=== PATIENT | female | born 1985 | race Caucasian/White ===

== ENCOUNTER 2017-03-28 17:19 | Emergency (ER) | payer SELFPAY ==
[~2017-03-28] VITALS: Ht 160 cm; Wt 90.0 kg
[~2017-03-28 17:19] MED LIST: MMW SSP; PENI500T PO
[2017-03-28 17:21] VITALS: BP 141/93; PULSE 98; RESP 16; TEMP 98.2; O2SAT 98
--- NOTE | 2017-03-28 18:02 | PD ---
HPI . rash that pops up here and there Chief Complaint: Skin Problem Time Seen by Provider: 18:02 Travel History International Travel<30 days: No Contact w/Intl Traveler<30days: No Traveled to known affect area: No History of Present Illness HPI 31 yr old female here with c/o a rash that comes and goes for the past 24 hours. She says that occasionally it denise. She denies any blisters or lesion. Most of the rash is clearing up. She came to the ED because her boss needs a note stating that she is not contagious. She denies any fever or chills. No angioedema or shortness of breath. PFSH Past Medical History Asthma: Yes Anxiety: Yes Depression: Yes Cancer: Yes (hx CERVICAL) Diminished Hearing: No Genitourinary: Yes (hx UTI) Musculoskeletal: Yes (CHRONIC BACK PAIN) Immunizations Current: Yes ?: Unknown : 8 Para: 1 Miscarriage: 3 : 4 Ovarian Cysts: Yes Past Surgical History Section: Yes (X1) Gynecologic Surgery: Yes (CERVIX REMOVED R/T CANCER) Hysterectomy: Yes Tonsillectomy: Yes Social History Alcohol Use: No Tobacco Use: Yes (1 ppd) Substance Use: Yes (hx IV DRUG USE/DILAUDID) Allergies-Medications (Allergen,Severity, Reaction): Coded Allergies: Aspirin (Verified Allergy, Severe, "seizures and hives", 06/20/15) Darvocet-N 100 (Verified Allergy, Severe, "hives", 06/20/15) Keflex (Verified Allergy, Severe, Hives, 06/20/15) Tramadol (Verified Allergy, Mild, THROAT SWELLS, 06/20/15) Reported Meds & Prescriptions Reported Meds & Active Scripts Active Magic Mouthwash-Diphenhy Formula (Lidocaine/Diphenhydr/Alum/Mg/Simeth) Ml 5-10 Ml SSP 5 TIMES A DAY MAGIC MOUTHWASH CONTAINS 1/3 VISCOUS LIDOCAINE, 1/3 MAALOX, AND 1/3 BENADRYL. Pen Vk (Penicillin V Potassium) 500 Mg Tab 500 Mg PO QID Review of Systems General / Constitutional: No: Fever Eyes: No: Visual changes HENT: No: Headaches Cardiovascular: No: Chest Pain or Discomfort Respiratory: No: Shortness of Breath Gastrointestinal: No: Abdominal Pain Genitourinary: No: Dysuria Musculoskeletal: No: Pain Skin: Positive Rash Neurologic: No: Weakness Psychiatric: No: Depression Endocrine: No: Polydipsia Hematologic/Lymphatic: No: Easy Bruising Physical Exam Narrative GENERAL: AAO x 3, no acute distress, Well-nourished, well-developed patient. SKIN: Warm and dry. No visible rashes or bruising. Small macular erythematous patch on the right flank. No other rash visualized. No blisters or lesions HEAD: Normocephalic and atraumatic. EYES: No scleral icterus. No injection or drainage. ENT: No nasal drainage noted. Mucous membranes pink. Airway patent. No abdominal oropharynx NECK: Supple, trachea midline. No JVD. CARDIOVASCULAR: Regular rate and rhythm without murmurs, gallops, or rubs. RESPIRATORY: Breath sounds equal bilaterally. No accessory muscle use. No rhonchi or rales. GASTROINTESTINAL: Abdomen soft, non-tender, nondistended. EXTREMITIES: No cyanosis or edema. BACK: Nontender without obvious deformity. No CVA tenderness. PSYCH: AAO x 3, normal affect. Data Data Last Documented VS Vital Signs Date Time Temp Pulse Resp B/P Pulse Ox O2 Delivery O2 Flow Rate FiO2 03/28/17 17:21 98.2 98 16 141/93 98 MDM Medical Decision Making Medical Screen Exam Complete: Yes Emergency Medical Condition: Yes Medical Record Reviewed: Yes Differential Diagnosis Contact dermatitis, less likely scabies, less likely shingles Narrative Course 31 yr old female here with c/o a rash that comes and goes for the past 24 hours. She says that occasionally it denise. She denies any blisters or lesion. Most of the rash is clearing up. She came to the ED because her boss needs a note stating that she is not contagious. She denies any fever or chills. No angioedema or shortness of breath. Patient seen and examined. She appears to have a contact dermatitis. I've explained to her that unfortunately I can tell exact cause. I recommend follow-up with a surveyor mine if the symptoms continue. I do not believe this is contagious. She can return to work. I'll go ahead and provide her with some prednisone to help with any inflammation. Patient verbalized understanding of instructions, questions were answered, and thanked me for their care. I advised them if their condition worsens, please return to the nearest emergency room for further care. Diagnosis Primary Impression: Contact dermatitis Qualified Code: L25.9 - Contact dermatitis, unspecified contact dermatitis type, unspecified trigger Patient Instructions: General Instructions Departure Forms: Tests/Procedures, Work Release Enter return to work date: March 29, 2017 Additional Instructions: Please return to emergency department if your symptoms return or worsen. Follow up with your primary care provider. Take medications as prescribed. Med/Other Pt SpecificInfo: Prescription(s) given Scripts Methylprednisolone Dosepak (Medrol Dosepak)4 Mg Dspk4 Mg PO DIRECTED #1 DSPK Ref 0 Per Pharmacist direction Prov:GarciaTamikoGenevieveharley Man DO 03/28/17 Disposition: 01 DISCHARGE HOME Condition: Stable Carmen Love March 28, 2017 18:02
[2017-03-28] MEDS ORDERED: MEDR4PAK PO (18:06)
== END 2017-03-28 18:30 | disposition home or self-care (01) ==
LOC: NEPK 17:19
DX: L25.9 Unspecified contact dermatitis, unspecified cause (principal); J45.909 Unspecified asthma, uncomplicated; F17.210 Nicotine dependence, cigarettes, uncomplicated
CPT/HCPCS: 99282

== ENCOUNTER 2017-04-11 10:19 | Emergency (ER) | payer SELFPAY ==
[~2017-04-11] VITALS: Ht 160 cm; Wt 100.0 kg
[~2017-04-11 10:19] MED LIST changes: +MEDR4PAK PO; -MMW SSP; -PENI500T PO
[2017-04-11 10:20] VITALS: BP 140/86; PULSE 104; RESP 16; TEMP 98.6; O2SAT 99
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
== END 2017-04-11 11:08 | disposition home or self-care (01) ==
LOC: NEPD 10:19
DX: S09.90XA Unspecified injury of head, initial encounter (principal); F17.210 Nicotine dependence, cigarettes, uncomplicated; W22.8XXA Striking against or struck by other objects, initial encounter; Y93.89 Activity, other specified; Y92.9 Unspecified place or not applicable; Y99.9 Unspecified external cause status
CPT/HCPCS: 99282

== ENCOUNTER 2017-12-04 01:55 | Emergency (ER) | payer SELFPAY ==
[~2017-12-04] VITALS: Ht 160 cm; Wt 75.7 kg
[2017-12-04 01:57] VITALS: BP 149/106; PULSE 113; RESP 16; TEMP 98.6; O2SAT 98
[2017-12-04] MEDS ORDERED: VANCOMYCIN INJ 1,000 MG in SODIUM CHLOR 0.9% 250 ML INJ 250 ML IV ONE (03:00)
--- NOTE | 2017-12-04 03:40 | RADRPT ---
EXAM DATE/TIME: 12/04/2017 03:13 [facility] COMPARISON: No previous studies available for comparison. INDICATIONS : Pain in right 3rd digit of hand. MEDICAL HISTORY : None. SURGICAL HISTORY : None. ENCOUNTER: Initial ACUITY: 1 day PAIN SCORE: 4/10 LOCATION: Right 3rd finger FINDINGS: There is soft tissue swelling of the third digit. No fracturei seen. Bony destruction is not seen. CONCLUSION: Soft tissue swelling.. Hermelindo Araiza MD on December 04, 2017 at 3:36 Board Certified Radiologist. This report was verified electronically.
[2017-12-04 03:43] LABS: AUTOMATED NEUTROPHIL # 7.6 TH/MM3 (1.8-7.7); BASOPHIL % 0.4 % (0.0-2.0); EOSINOPHIL % 0.1 % (0.0-4.0); HEMATOCRIT 44.4 % (35.0-46.0); HEMOGLOBIN 15.1 GM/DL (11.6-15.3); LYMPH % 7.2 % (9.0-44.0); LYMPHOCYTE # 0.6 TH/MM3 (1.0-4.8); MEAN CELL VOLUME 86.9 FL (80.0-100.0); MEAN CORPUSCULAR HEMOGLOBIN 29.6 PG (27.0-34.0); MEAN CORPUSCULAR HGB CONC 34.1 % (32.0-36.0); MEAN PLATELET VOLUME 9.8 FL (7.0-11.0); MONO % 5.2 % (0.0-8.0); MONOCYTE # 0.5 TH/MM3 (0-0.9); NEUT % 87.1 % (16.0-70.0); PLATELET COUNT 373 TH/MM3 (150-450); RED CELL DISTRIBUTION WIDTH 14.1 % (11.6-17.2); WHITE BLOOD COUNT 8.7 TH/MM3 (4.0-11.0)
[2017-12-04 03:58] VITALS: BP 125/85; PULSE 101; RESP 18; O2SAT 100
[2017-12-04 04:04] LABS: BICARBONATE 25.1 MEQ/L (21.0-32.0); CALCIUM 9.8 MG/DL (8.5-10.1); CREATININE 0.87 MG/DL (0.50-1.00)
[2017-12-04] MEDS ORDERED: KETOROLAC TROMETHAMINE 30 MG/ML (IVP) VIAL IV PUSH ONE (04:15)
--- NOTE | 2017-12-04 04:57 | RADRPT ---
EXAM DATE/TIME: 12/04/2017 04:20 [facility] COMPARISON: No previous studies available for comparison. INDICATIONS : Shortness of breath MEDICAL HISTORY : None. SURGICAL HISTORY : Tonsillectomy. Cervix removed ENCOUNTER: Initial ACUITY: 1 day PAIN SCORE: 7/10 LOCATION: Bilateral chest FINDINGS: A single view of the chest demonstrates the lungs to be symmetrically aerated without evidence of mas s, infiltrate or effusion. The cardiomediastinal contours are unremarkable. Osseous structures are intact. CONCLUSION: No acute disease. Hermelindo Araiza MD on December 04, 2017 at 4:55 Board Certified Radiologist. This report was verified electronically.
[2017-12-04 05:30] VITALS: RESP 18
[2017-12-04] MEDS ORDERED: CLIN150C14 PO (05:46)
[2017-12-04] MEDS ORDERED: BACT800T5 PO (05:46)
--- NOTE | 2017-12-04 05:48 | PD ---
HPI Chief Complaint: Skin Problem Time Seen by Provider: 02:57 Travel History International Travel<30 days: No Contact w/Intl Traveler<30days: No Traveled to known affect area: No History of Present Illness HPI 32-year-old female presents to the emergency department with redness and swelling of her right middle finger after sustaining a laceration while at work 1 week ago. Patient's noted symptoms worsening over the past 2 days. No ascending erythema no fever or chills. No nausea or vomiting. Patient states her last tetanus immunization was 2 years ago. Patient denies . Patient rates pain as moderate to severe. PFSH Past Medical History Narrative Medical Anxiety depression IV drug abuse cervical cancer ovarian cyst; nursing notes reviewed Asthma: Yes Anxiety: Yes Depression: Yes Cancer: Yes (hx CERVICAL) Diminished Hearing: No Genitourinary: Yes (hx UTI) Musculoskeletal: Yes (CHRONIC BACK PAIN) Immunizations Current: Yes ?: Unknown : 8 Para: 1 Miscarriage: 3 : 4 Ovarian Cysts: Yes Past Surgical History Section: Yes (X1) Gynecologic Surgery: Yes ( CERVIX REMOVED R/T CANCER) Hysterectomy: Yes Tonsillectomy: Yes Social History Alcohol Use: Yes (OCC) Tobacco Use: Yes (2 ppd) Substance Use: Yes (hx IV DRUG USE/DILAUDID&METH) Allergies-Medications (Allergen,Severity, Reaction): Coded Allergies: acetaminophen (Unverified Allergy, Severe, "hives", 12/04/17) aspirin (Unverified Allergy, Severe, "seizures and hives", 12/04/17) cephalexin (Unverified Allergy, Severe, Hives, 12/04/17) propoxyphene (Unverified Allergy, Severe, "hives", 12/04/17) tramadol (Unverified Allergy, Mild, THROAT SWELLS, 12/04/17) Reported Meds & Prescriptions Reported Meds & Active Scripts Active No Active Prescriptions or Reported Medications Review of Systems Except as stated in HPI: all other systems reviewed are Neg General / Constitutional: No: Fever, Chills HENT: No: Congestion Cardiovascular: No: Chest Pain or Discomfort Respiratory: No: Shortness of Breath Gastrointestinal: No: Abdominal Pain Genitourinary: No: Dysuria, Hematuria Musculoskeletal: Positive: Edema (right middle finger), Pain (right middle finger), No: Arthralgias Skin: No Rash Neurologic: No: Weakness Psychiatric: No: Anxiety Hematologic/Lymphatic: No: Lymph Node Enlargement Physical Exam Narrative GENERAL: Well-developed well-nourished female in no acute distress no respiratory distress SKIN: Warm and dry. HEAD: Normocephalic. EYES: No scleral icterus. No injection or drainage. NECK: Supple, trachea midline. No JVD or lymphadenopathy. CARDIOVASCULAR: Regular rate and rhythm without murmurs, gallops, or rubs. RESPIRATORY: Breath sounds equal bilaterally. No accessory muscle use. GASTROINTESTINAL: Abdomen soft, non-tender, nondistended. MUSCULOSKELETAL: No cyanosis, or edema. Attention right hand right middle finger digit erythema edema mild increased warmth and evidence of poorly healing laceration to the distal medial aspect. Capillary refill is brisk and less than 2 seconds sensation is intact there is no involvement of the hand patient has decreased range of motion secondary to soft tissue swelling. No necrotic tissue, no palpable subcutaneous gas. BACK: Nontender without obvious deformity. No CVA tenderness. Data Data Last Documented VS Vital Signs Date Time Temp Pulse Resp B/P (MAP) Pulse Ox O2 Delivery O2 Flow Rate FiO2 12/04/17 05:30 18 12/04/17 03:58 101 125/85 (98) 100 Room Air 12/04/17 01:57 98.6 Orders Orders Basic Metabolic Panel (Bmp) (12/04/17 02:57) Complete Blood Count With Diff (12/04/17 02:57) Blood Culture (12/04/17 02:57) Wound Culture And Gram Stain (12/04/17 02:57) Iv Access Insert/Monitor (12/04/17 02:57) Hand, Complete ([id number]) (12/04/17 ) Vancomycin Inj (Vancomycin Inj) (12/04/17 03:00) Ed Urine Pregnancytest Poc (12/04/17 02:57) Chest, Single Ap (12/04/17 ) Ketorolac Inj (Toradol Inj) (12/04/17 04:15) Labs Laboratory Tests Test 12/04/17 03:30 White Blood Count 8.7 TH/MM3 Red Blood Count 5.10 MIL/MM3 Hemoglobin 15.1 GM/DL Hematocrit 44.4 % Mean Corpuscular Volume 86.9 FL Mean Corpuscular Hemoglobin 29.6 PG Mean Corpuscular Hemoglobin Concent 34.1 % Red Cell Distribution Width 14.1 % Platelet Count 373 TH/MM3 Mean Platelet Volume 9.8 FL Neutrophils (%) (Auto) 87.1 % Lymphocytes (%) (Auto) 7.2 % Monocytes (%) (Auto) 5.2 % Eosinophils (%) (Auto) 0.1 % Basophils (%) (Auto) 0.4 % Neutrophils # (Auto) 7.6 TH/MM3 Lymphocytes # (Auto) 0.6 TH/MM3 Monocytes # (Auto) 0.5 TH/MM3 Eosinophils # (Auto) 0.0 TH/MM3 Basophils # (Auto) 0.0 TH/MM3 CBC Comment DIFF FINAL Differential Comment Blood Urea Nitrogen 17 MG/DL Creatinine 0.87 MG/DL Random Glucose 113 MG/DL Calcium Level 9.8 MG/DL Sodium Level 137 MEQ/L Potassium Level 3.9 MEQ/L Chloride Level 104 MEQ/L Carbon Dioxide Level 25.1 MEQ/L Anion Gap 8 MEQ/L Estimat Glomerular Filtration Rate 75 ML/MIN MDM Medical Decision Making Medical Screen Exam Complete: Yes Emergency Medical Condition: Yes Medical Record Reviewed: Yes Interpretation(s) Vital Signs Date Time Temp Pulse Resp B/P (MAP) Pulse Ox O2 Delivery O2 Flow Rate FiO2 12/04/17 05:30 18 12/04/17 03:58 101 18 125/85 (98) 100 Room Air 12/04/17 01:57 98.6 113 16 149/106 (120) 98 Last Impressions Hand X-Ray 12/04/17 0000 Signed Impressions: Service Date/Time: Monday, December 04, 2017 03:13 - CONCLUSION: Soft tissue swelling.. Hermelindo Araiza MD Chest X-Ray 12/04/17 0000 Signed Impressions: Service Date/Time: Monday, December 04, 2017 04:20 - CONCLUSION: No acute disease. Hermelindo Araiza MD CBC & BMP Diagram 12/04/17 03:30 Calcium Level 9.8 Differential Diagnosis Cellulitis, abscess, tendon injury, tenosynovitis, neurovascular injury, retained foreign body, fracture, osteomyelitis; no crepitus unlikely necrotizing fasciitis Narrative Course IV access obtained specimens collected and sent for resulting patient administered 1 dose of vancomycin 1 g IV piggyback along with Toradol 30 mg IV imaging study ordered Patient reports pain has improved significantly after Toradol 30 mg IV 32-year-old female presents with infection of the distal right middle finger with evidence of previous injury which she reports was a laceration patient has tenderness without fluctuance and no palpable subcutaneous emphysema; imaging study shows soft tissue swelling; no involvement of the hand; patient has decreased range of motion secondary to swelling but is able to use the digit without causing referred proximal pain. Patient afebrile. Patient is not diabetic. White count is normal. At this point in time patient has received IV antibiotics. Patient reports she cannot stay in the hospital she has not been on any antibiotic. Therefore will given a trial of oral antibiotic with one day recheck in the emergency department if no evidence of any improvement patient will require admission for IV antibiotic intervention. Patient is aware of evaluation plan and is aware of risk of failing to take antibiotic and risk of not completing antibiotic. Sepsis Criteria SIRS Criteria (2 or more): Heart rate over 90 Sepsis Criteria (SIRS+source): Infect source susp/known (cellulitis r 3rd finger) Diagnosis Primary Impression: Cellulitis of right middle finger Referrals: Hand Surgeon call for appointment Patient Instructions: General Instructions Additional Instructions: Take antibiotic as prescribed One day recheck in the emergency department Take ibuprofen/Advil/Motrin every 6-8 hours as needed for fever 100.4F or greater or for pain associated with inflammation No work 2 days Follow-up with hand surgeon Med/Other Pt SpecificInfo: Prescription(s) given Scripts Sulfamethoxazole-Trimethoprim (Bactrim DS) 800-160 Mg Tab 1 TAB PO BID for Infection, #20 TAB 0 Refills Prov: Iwona Bright MD 12/04/17 Clindamycin (Clindamycin) 150 Mg Cap 300 MG PO Q6H for Infection, #7 CAP 0 Refills Prov: Iwona Bright MD 12/04/17 Disposition: DISCHARGE HOME Condition: Stable Iwona Bright MD Dec 04, 2017 05:47
== END 2017-12-04 05:53 | disposition home or self-care (01) ==
LOC: NEPC 01:55
DX: L03.011 Cellulitis of right finger (principal); B95.62 Methicillin resistant Staphylococcus aureus infection as the cause of diseases classified elsewhere; J45.909 Unspecified asthma, uncomplicated
CPT/HCPCS: 71045; 73130; 80048; 84703; 85025; 86403; 87040; 87070; 87186; 96361; 96374; 99284; J1885; J3370; J7050